=== PATIENT | female | born 1975 | race Hispanic/Latino ===

== ENCOUNTER 2022-12-30 15:11 | Emergency (ER) | payer OTHER ==
--- OUTSIDE RECORDS SUMMARY | 2022-12-30 15:17 | XMS REPORT | Continuity of Care Document ---
:1975 Author Organization [facility] t Address [address] [place] [address] Care Team Providers Name Role Phone NO, PCP Primary Care Physician Unavailable NOMI CARMONA Attending Clinician Unavailable DUONG HERMAN Attending Clinician Unavailable NICOLLE BAILON Attending Clinician Unavailable JUSTIN MENA Attending Clinician Unavailable IZABELLA BOYLE Attending Clinician Unavailable SRIDEVI SAHNI Attending Clinician Unavailable ANTHONY ASHTON Attending Clinician Unavailable GINI GOMES Attending Clinician Unavailable ERNIE ANDRADE Attending Clinician Unavailable ANNABELLA DUBOSE Attending Clinician Unavailable JUAN RASCON Attending Clinician Unavailable SUSAN BRYANT Attending Clinician Unavailable CAMILA FERRO Attending Clinician Unavailable FEDE MARK I Attending Clinician Unavailable NANCY VILLAFUERTE Attending Clinician Unavailable LUPE CHAVARRIA Attending Clinician Unavailable Aggie Muniz Attending Clinician Unavailable INGRID HOLGUIN Attending Clinician Unavailable SABRINA CARD Admitting Clinician Unavailable Physician, No Primary or Family Admitting Clinician UnavailINGRID Torrez Admitting Clinician Unavailable Payers Payer Name Policy Type Policy Number Effective Date Expiration Date S ource Problems Condition Condition Condition Status Onset Resolution Last Treating Co mments Source Name Details Category Date Date Treatment Clinician Date Severe Problem Active [facility] Vaginal Problem Active [facility] Allergies, Adverse Reactions, Alerts Allergy Allergy Status Severity Reaction(s) Onset Inactive Treating Comm ents Source Name Type Date Date Clinician No Known DA Active U 2020-11 TARUN Allergnoble 12-05 [facility] e [facility] No Known DA Active [facility]y s Patient [facility] Social History Social Habit Start Date Stop Date Quantity Comments Source History of tobacco [facility] Sex Assigned At [birth year] Female [facility] St Yamini whitt 00:00:00 00:00:00 Patient [facility] Medications This patient has no known medications. Vital Signs Vital Name Observation Time Observation Value Comments Source BP Diastolic 2021-09-02 11:31:00 48 mm[Hg] [facility] BP Systolic 2021-09-02 11:31:00 104 mm[Hg] [facility] Oxygen saturation by 2021-09-02 11:31:00 100 /min [facility] Pulse oximetry Patient [facility] Heart Rate 2021-09-02 11:31:00 68 /min [facility] Respiratory rate 2021-09-02 11:31:00 18 /min [facility] Body Temperature 2021-09-02 11:31:00 97.1 [degF] [facility] BP Diastolic 2021-09-02 09:02:00 56 mm[Hg] [facility] BP Systolic 2021-09-02 09:02:00 101 mm[Hg] [facility] Oxygen saturation by 2021-09-02 09:02:00 100 /min [facility] Pulse oximetry Patient [facility] Heart Rate 2021-09-02 09:02:00 63 /min [facility] Respiratory rate 2021-09-02 09:02:00 18 /min [facility] Body Temperature 2021-09-02 09:02:00 98.3 [degF] [facility] Respiratory rate 2021-09-02 08:11:00 18 /min [facility] Body Temperature 2021-09-02 08:11:00 98.3 [degF] [facility] BP Diastolic 2021-09-02 08:11:00 56 mm[Hg] [facility] BP Systolic 2021-09-02 08:11:00 101 mm[Hg] [facility] Oxygen saturation by 2021-09-02 08:11:00 100 /min [facility] P[facility] Heart Rate 2021-09-02 08:11:00 63 /min [facility] BP Diastolic 2021-09-02 04:00:00 57 mm[Hg] [facility] BP Systolic 2021-09-02 04:00:00 110 mm[Hg] [facility] Oxygen saturation by 2021-09-02 04:00:00 100 /min [facility] P[facility] Heart Rate 2021-09-02 04:00:00 65 /min [facility] Respiratory rate 2021-09-02 04:00:00 20 /min [facility] Body Temperature 2021-09-02 04:00:00 97.9 [degF] [facility] BP Diastolic 2021-09-02 00:00:00 58 mm[Hg] [facility] BP Systolic 2021-09-02 00:00:00 114 mm[Hg] [facility] Oxygen saturation by 2021-09-02 00:00:00 100 /min [facility] Pulse [facility] Heart Rate 2021-09-02 00:00:00 59 /min [facility] Respiratory rate 2021-09-02 00:00:00 18 /min [facility] Body Temperature 2021-09-02 00:00:00 98.3 [degF] [facility] BP Diastolic 2021-09-01 21:00:00 56 mm[Hg] [facility] BP Systolic 2021-09-01 21:00:00 106 mm[Hg] [facility] Oxygen saturation by 2021-09-01 21:00:00 100 /min [facility] Heart Rate 2021-09-01 21:00:00 67 /min [facility] Patient [facility] Respiratory rate 2021-09-01 21:00:00 20 /min [facility] St [facility] Body Temperature 2021-09-01 21:00:00 98.3 [degF] [facility] BP Diastolic 2021-09-01 20:00:00 56 mm[Hg] [facility] BP Systolic 2021-09-01 20:00:00 106 mm[Hg] [facility] Patient [facility] Oxygen saturation by 2021-09-01 20:00:00 100 /min [facility] Pulse oximetry Patient [facility] Heart Rate 2021-09-01 20:00:00 67 /min [facility] Patient [facility] Respiratory rate 2021-09-01 20:00:00 20 /min [facility] Body Temperature 2021-09-01 20:00:00 98.3 [degF] [facility] BP Diastolic 2021-09-01 16:00:00 55 mm[Hg] [facility] BP Systolic 2021-09-01 16:00:00 99 mm[Hg] [facility] Oxygen saturation by 2021-09-01 16:00:00 98 /min [facility] Pulse oximetry Patient [facility] Heart Rate 2021-09-01 16:00:00 63 /min [facility] Respiratory rate 2021-09-01 16:00:00 18 /min [facility] Body Temperature 2021-09-01 16:00:00 97.6 [degF] [facility] BP Diastolic 2021-09-01 12:08:00 46 mm[Hg] [facility] BP Systolic 2021-09-01 12:08:00 111 mm[Hg] [facility] Patient [facility] Oxygen saturation by 2021-09-01 12:08:00 100 /min [facility] Pulse oxim[facility] Patient [facility] Heart Rate 2021-09-01 12:08:00 85 /min [facility] Respiratory rate 2021-09-01 12:08:00 16 /min [facility] Body Temperature 2021-09-01 12:08:00 97.9 [degF] [facility] St [facility] BP Diastolic 2021-09-01 09:15:00 55 mm[Hg] [facility] BP Systolic 2021-09-01 09:15:00 105 mm[Hg] [facility] Oxygen saturation by 2021-09-01 09:15:00 100 /min [facility] Pulse [facility]xim[facility] Heart Rate 2021-09-01 09:15:00 63 /min [facility] Respiratory rate 2021-09-01 09:15:00 18 /min [facility] Body Temperature 2021-09-01 09:15:00 97.5 [degF] [facility] BP Diastolic 2021-09-01 09:14:00 55 mm[Hg] [facility] BP Systolic 2021-09-01 09:14:00 105 mm[Hg] [facility] Oxygen saturation by 2021-09-01 09:14:00 100 /min [facility] Pulse [facility]ximetry Patient [facility] Heart Rate 2021-09-01 09:14:00 63 /min [facility] Respiratory rate 2021-09-01 09:14:00 18 /min [facility] Body Temperature 2021-09-01 09:14:00 97.5 [degF] [facility] Oxygen saturation by 2021-09-01 07:25:00 99 /min [facility] Pulse [facility]ximetry Patient [facility] Oxygen saturation by 2021-09-01 04:45:00 100 /min [facility] Pulse [facility]ximetry Patient [facility] Oxygen saturation by 2021-09-01 03:45:00 100 /min [facility] Pulse [facility]ximetry Patient [facility] Oxygen saturation by 2021-09-01 03:20:00 100 /min [facility] Pulse [facility]ximetry Patient [facility] Heart Rate 2021-09-01 03:20:00 72 /min [facility] Center Respiratory rate 2021-09-01 03:20:00 18 /min [facility] Oxygen saturation by 2021-09-01 02:45:00 100 /min [facility] Pulse [facility]ximetry Patient [facility] Oxygen saturation by 2021-09-01 01:45:00 100 /min [facility] Pulse [facility]ximetry Patient [facility] Heart Rate 2021-09-01 01:45:00 68 /min [facility] Patient [facility] Respiratory rate 2021-09-01 01:45:00 20 /min [facility] Patient [facility] Oxygen saturation by 2021-09-01 00:45:00 100 /min [facility] Pulse oximetry Patient [facility] Oxygen saturation by 2021-08-31 23:45:00 100 /min [facility] Pulse oximetry Patient [facility] Heart Rate 2021-08-31 23:45:00 76 /min [facility] Respiratory rate 2021-08-31 23:45:00 20 /min [facility] Patient [facility] Oxygen saturation by 2021-08-31 22:45:00 100 /min [facility] Pulse oximetry Patient [facility] Oxygen saturation by 2021-08-31 21:45:00 100 /min [facility] Pulse oximetry Patient [facility] Oxygen saturation by 2021-08-31 20:45:00 100 /min [facility] Pulse oximetry Patient [facility] Oxygen saturation by 2021-08-31 19:45:00 100 /min [facility] Pulse oximetry Patient [facility] Oxygen saturation by 2021-08-31 17:17:00 100 /min [facility] Pulse oximetry Patient [facility] Oxygen saturation by 2021-08-31 15:54:00 100 /min [facility] Pulse oximetry Patient [facility] Oxygen saturation by 2021-08-31 15:01:00 100 /min [facility] Pulse [facility]ximetry Patient [facility] Procedures Procedure Date / Time Performed Performing Clinician Sour e Complete non-obstetrical 2021-08-31 00:00:[address] [facility] ultrasound [facility] Patient [facility] US transvaginal 2021-08-31 00:00:[address] [facility] Plan of Care Planned Activity Planned Date Details Comments Source Instructions Uterine Fibroids, [facility] Instructions Abnormal Uterine [facility] Encounters Start End Encounter Admission Attending Care Care Encounter Source Date/Time Date/Time Type Type Clinicians Facility Department ID 2022-04-28 Inpatient KRISTINE, [facility] [id number] H arris 00:00:00 [facility] 2022-04-28 Inpatient KRISTINE, [facility] [id number] H arris 00:00:00 [facility] 2021-08-31 Inpatient [facility] [id number] [facility] 14:51:00 -[id number] [facility] 2022-06-18 2022-06-18 Outpatient [facility] [id number] [place] 00:00:00 00:00:00 [facility] 2022-06-11 2022-06-11 Outpatient CHIDI [facility] [id number] [place] 00:00:00 00:00:00 DUONG MARISCAL [facility] 2022-05-12 2022-05-12 Outpatient NICOLLE BAILON [facility] [id number] [place] 08:45:12 09:08:55 [facility] 2022 2022 Outpatient [facility] [id number] [place] 00:00:00 00:00:00 [facility] 2022-04-27 2022-04-29 [facility]patient [facility] [id number] [place] 21:59:00 14:24:00 [facility] 2022-04-27 2022-04-27 Outpatient 1 TAMAR [facility] [id number] [place] 21:59:00 21:59:00 [facility] 2022-04-22 2022-04-22 Outpatient [facility] [id number] [place] 00:00:00 00:00:00 [facility] 2022-04-02 2022-04-02 Outpatient INDY [facility] [id number] [place] 06:12:26 06:12:26 SRIDEVI Kinsey 2022-03-27 2022-03-27 Outpatient DIASHA [facility] [id number] [place] 00:00:00 00:00:00 [facility] 2022-03-24 2022-03-25 Emergency ELISEO [facility] MED [id number] [place] 17:07:00 05:08:00 GINI Huertas 2022-03-24 2022-03-24 [facility] [id number] [place] 18:16:25 19:48:37 ERNIE [facility] 2022-03-24 2022-03-24 Emergency 1 [facility] [id number] [place] 17:07:00 17:07:00 [facility] 2022-03-24 2022-03-24 Outpatient SEDRICK, [facility] [id number] [place] 00:00:00 17:06:00 [facility] 2022-03-19 2022-03-19 Emergency TARAH, [facility] MED [id number] [place] 14:19:00 21:20:00 JUAN [facility] 2022-03-19 2022-03-19 [facility] [id number] [place] 09:21:26 11:24:02 [facility] 2022-03-19 2022-03-19 Outpatient [facility] [id number] [place] 10:24:57 10:36:28 [facility] 2022-03-19 2022-03-19 [facility] [id number] [place] 00:00:00 00:00:00 [facility] 2022-03-19 2022-03-19 Outpatient SUSAN BRYANT [facility] [id number] [place] 00:00:00 00:00:00 [facility] 2022-02-13 2022-02-13 [facility] [id number] [place] 14:35:45 14:41:39 [facility] 2022-02-13 2022-02-13 [facility] [id number] [place] 13:13:25 14:28:59 [facility] 2022-02-13 2022-02-13 [facility] [id number] [place] 00:00:00 00:00:00 [facility] 2022-02-13 2022-02-13 [facility] [id number] [place] 00:00:00 00:00:00 [facility] 2022-01-10 2022-01-11 Emergency PILLO [facility] MED [id number] [place] 20:58:00 05:10:[facility] 2022-01-11 Emergency FEDE MARK [facility] [id number] [place] 02:32:08 03:12:48 Health 2022-01-11 2022-01-11 Emergency FEDE MARK [facility] [id number] [place] 00:06:02 00:07:52 [facility] 2022-01-10 2022-01-10 Emergency 1 CHRISTO [facility] [id number] [place] 20:58:00 20:58:00 NANCY [facility] 2022-01-07 2022-01-08 [facility] [id number] [place] 16:52:00 01:52:00 LUPE [facility] 2022-01-07 2022-01-07 Emergency [facility] [id number] [place] 17:26:14 18:12:21 [facility] 2021-10-05 2021-10-06 Emergency EHSAN Muniz [facility] [id number] [facility] 19:27:00 00:26:[address] 2021-08-31 2021-09-02 Discharged 1 INGRID HOLGUIN [facility] [id number] [facility] 17:27:00 12:55:00 Inpatient Patients [address] [place] [address] Results Test Description Test Time Test Comments Results Result Comments Source SARS-CoV-2 RNA Resp Ql MONIQUE+probe 2022-04-28 03:49:02 Test Item Value Reference Range Interpretation Comme nts Hospitalized? (test code = Yes 70399-3) ICU? (test code = 80747-5) No Symptomatic as defined by CDC? No (test code = 76851-8) Employed in Healthcare? (test No code = 39549-2) Resident in a congregate care No setting (including nursing homes, residential care for people with intellectual and developmental disabilities, psychiatric treatment facilities, group homes, board and care homes, homeless senior living, foster care or other): (test code = 96026-6) ? (test code = No 72276-0) SARS-CoV-2 RNA Resp Ql NOT DETECTED Not Detected The 2 019 novel coronavirus MONIQUE+probe (test code = (SARS -CoV-2) target nucleic 09159-3) acids are not d etected. The KIKI Kandis SARS-CoV-2/Influenza is a real-time RT-PCR based diagnostic test intended for the qualitative detection of SARS-CoV-2 viral RNA in a nasopharyngeal swab during acute phase of infection. This test was developed and its performance characteristics have been determined by the [facility]. This test has not been cleared or approved by the FDA. This test system has been authorized by the FDA under an Emergency Use Authorization (EUA). This test has been validated in accordance with the FDA's Guidance document "Policy for Coronavirus Disease-2019 Tests During the Public Health Emergency" (Revised March 2020) and is used for clinical purposes. It should not be regarded as investigational or for researchPositive results are indicative of the presence of the identified virus, but do not rule out bacterial infection or co-infection with other pathogens not detected by the test. Clinical correlation with patient history and other diagnostic information is necessary to determine patient infection status. Negative results do not preclude SARS-CoV-2 or Influenza A and B and should not be used as the sole basis for treatment or other patient management decisions. Negative results must be combined with clinical observations, patient history, and/or epidemiological information. If co-infection with influenza A or influenza B virus is suspected in samples with a positive SARS-CoV-2 result, please contact the laboratory so that the sample can be re-tested with a different instrument, if influenza virus detection would change clinical management.This laboratory is certified under the Clinical Laboratory Improvement Amendments (CLIA) as qualified to perform high complexity clinical laboratory testing.HHSHIV 1+2 Ab+HIV1 p24 Ag SerPl Ql [id number] 17:21:50 Test Item Value Reference Range Interpretation Comments HIV 1+2 Ab+HIV1 p24 Ag SerPl Ql IA NEGATIVE Negative (test code = 91562-7) HHSHIV 1+2 Ab+HIV1 p24 Ag SerPl Ql [id number] 21:05:20 Test Item Value Reference Range Interpretation Comments HIV 1+2 Ab+HIV1 p24 Ag SerPl Ql IA NEGATIVE Negative (test code = 38949-7) HHSHCG SERUM [id number] 22:03:00 Test Item Value Reference Range Interpretation Comments HCG SERUM QUAL (test NEGATIVE NEGATIVE This HC GQL test is NOT code = HCGQL) applicable for MALE patients.Check with nurse about probable order error.If Tumor Marker Test needed, nu rse should order test "HCG TU"(Test #550.81557)---- - BASIC METABOLIC [id number] 22:03:00 Test Item Value Reference Range Interpretation Comments SODIUM (test code = 138 mmol/L 136-145 N NA) POTASSIUM (test code 3.7 mmol/L 3.5-5.1 N = K) CHLORIDE (test code 108.0 mmol/L 98-107 H = CL) CARBON DIOXIDE (test 20.0 mmol/L 21-32 L code = CO2) ANION GAP (test code 13.7 10-20 N = GAP) GLUCOSE (test code = 170 mg/dL 74-106 H GLU) BLOOD UREA NITROGEN 11 mg/dL 7-18 N (test code = BUN) GLOMERULAR > 60 mL/min See_Comment Estimated GFR b y FILTRATION RATE using Modifi ed MDRD (test code = GFR) formula.[facility] kidney disease is defined as eith er kidney damageor GFR <60 mL/min/1.73 m2 for >3 months. [Automated mess age] The system BMEYE generated this result transmitted ref erence range: >=60. Th e reference range was not used to int erpret this result as normal/abnormal . CREATININE (test 0.70 mg/dL 0.55-1.02 N Note garvey ge in code = CREAT) reference rang e due to change in reagent. BUN/CREATININE RATIO 15.1 10-20 N (test code = BUN/CREA) CALCIUM (test code = 8.9 mg/dL 8.5-10.1 N CA) CBC W/O [id number] 21:48:00 Test Item Value Reference Range Interpretation Comments WHITE BLOOD CELL (test code = 7.5 K/mm3 4.5-12.5 N WBC) RED BLOOD CELL (test code = 3.73 mill/mm3 3.7-5.2 N RBC) HEMOGLOBIN (test code = HGB) 7.4 gram/dL 11.5-15.5 L HEMATOCRIT (test code = HCT) 27.7 % 36.0-46.0 L MEAN CELL VOLUME (test code = 74.3 fL 80-98 L MCV) MEAN CELL HGB (test code = MCH) 19.8 picogram 27.0-33.0 L MEAN CELL HGB CONCETRATION 26.7 gram/dL 33.0-36.0 L (test code = MCHC) RED CELL DISTRIBUTION WIDTH 19.0 % 11.6-16.2 H (test code = RDW) PLATELET COUNT (test code = 328 K/mm3 150-450 N PLT) MEAN PLATELET VOLUME (test code 9.4 fL 6.7-11.0 N = MPV) - DUP AB/PEL/SC [id number] 21:05:00 [facility] : 1975 Sex: F [facility]: [facility] 1975 Age/S: 46 / F [address] Replaced By [facility] Unit #: [id number] Loc: E[place] [address] Phys: Shimon Qureshi Acct: [id number] Dis Date: Status: REG ER PHONE #: [phone] Exam Date: 10/05/20212101 FAX #: [phone] Reason: PELVIC PAIN EXAMS: CPT CODE: [id number] DUP AB/PEL/SC COMP 45516 HISTORY: VAGINAL BLEEDING/PELVIC PAIN TECHNIQUE: Static grayscale and color Doppler images from real-time transabdominal sonographic evaluation of the pelvis. Images from endovaginal probe were also acquired for better visualization of endometrial canal and adnexal structures. COMPARISON: None FINDINGS: Uterus measures 11.9 x 6.1 x 5.9 cm (length x AP x transverse dimensions). Hypoechoic 6.3 x 4.3 x 6.5 cm anterior lower uterine segment submucosal/intramural fibroid. Endometrial stripe is normal thickness at 8 mm. Right ovary measures 4.5 x 1.5 x 4.0 cm. No mass or dominant cyst. Satisfactory color Doppler flow and spectral waveform is detected. Left ovary measures 3.3 x 2.6 x 2.6 cm. No mass or dominant cyst. Satisfactory color Doppler flow and spectral waveform is detected. No adnexal mass. No pelvic free fluid. IMPRESSION: 6.5 cm anterior lower uterine segment submucosal/intramural fibroid. Normal thickness endometrial stripe. LOCATION: LP at 2104 Reported and signed by: Nancy Wright D.O. PAGE 1 Signed Report (CONTINUED) Name: SINGHLORENA HIDALGOALFONSO JUAN [facility] : 1975 Age/S: 46 / F [address] [facility] Unit #: [id number] Loc: [place] [address] Phys: Shimon Qureshi Acct: [id number] Dis Date: Status: REG ER PHONE #: [phone] Exam Date: 10/05/20212101 FAX #: [phone] Reason: PELVIC PAIN EXAMS: CPT CODE: [id number] DUP AB/PEL/SC COMP 12578 (Continued) CC: Shimon Qureshi Technologist: RAMY DOYLE Trnscb Date/Time: 10/05/2021 (2104) [email or web address] Orig Print D/T: S: 10/05/2021 (2107) Probe: PAGE 2 Signed Report- US TRANSVAGINAL NON [id number] 21:05:00 [facility])Name: FRANCISCO PALOMOALFONSO Boss : 1975 Sex: F Name: ALFONSO TORRES [facility] : 1975 Age/S: 46/ F [address] Unit #: [id number] Loc: [place] [address] Phys: Shimon Qureshi APRIESHA Acct: [id number] Dis Date: Status: REG ER PHONE #: [phone] Exam Date: 10/05/20212101 FAX #: [phone] Reason: VAGINAL BLEEDING/PELVIC PAIN EXAMS: CPT CODE: [id number] [place] [address] HISTORY: VAGINAL BLEEDING/PELVIC PAIN TECHNIQUE: Static grayscale and color Doppler images from real-time transabdominal sonographic evaluation of the pelvis. Images from endovaginal probe were also acquired for better visualization of endometrial canal and adnexal structures. COMPARISON: None FINDINGS:Uterus measures 11.9 x 6.1 x 5.9 cm (length x AP x transverse dimensions). Hypoechoic 6.3 x 4.3 x 6.5 cm anterior lower uterine segment submucosal/intramural fibroid. Endometrial stripe is normal thickness at 8 mm. Right ovary measures 4.5 x 1.5 x 4.0 cm. No mass or dominant cyst. Satisfactory color Doppler flow and spectral waveform is detected. Left ovary measures 3.3 x 2.6 x 2.6 cm. No mass or dominant cyst. Satisfactory color Doppler flow and spectral waveform is detected. No adnexal mass. No pelvic free fluid. IMPRESSION: 6.5 cm anterior lower uterine segment submucosal/intramural fibroid. Normal thickness endometrial stripe. LOCATION: LP at 2105 Reported and signed by: Nancy Wright D.O. PAGE 1 Signed Report (CONTINUED) Name: [facility]SO [facility] : 1975 Age/S: 46 / F [address] Unit #: [id number] Loc: [place] [address] Phys: Shimon Qureshi Acct: [id number] Dis Date: Status: REG ER PHONE #: [phone] Exam Date: 10/05/20212101 FAX #: [phone] Reason: VAGINAL BLEEDING/PELVIC PAIN EXAMS: CPT CODE: [id number] [place] [address] (Continued) CC: Shimon Qureshi Technologist: RAMY DOYLE US Trnscb Date/Time: 10/05/2021 (2104) [email or web address] Orig Print D/T: S: 10/05/2021 (2107) Probe: [id number] PAGE 2 Signed Report- US PELVIS [id number] 21:05:00 [facility] TORRES YESSICA : 1975 Sex: F Name: PALOMA TORRESSilvano JUAN [facility] : 1975 Age/S: 46 / F [address] [facility] Unit #: [id number] Loc: [place] [address] Phys: Shimon Qureshi Acct: [id number] Dis Date: Status: REG ER PHONE #: [phone] Exam Date: 10/05/20212101 FAX #: [phone] Reason: VAGINAL BLEEDING/PELVIC PAIN EXAMS: CPT CODE: [id number] US PELVIS COMPLETE 52584 HISTORY:VAGINAL BLEEDING/PELVIC PAIN TECHNIQUE: Static grayscale and color Doppler images from real-time transabdominal sonographic evaluation of the pelvis. Images from endovaginal probe were also acquired for better visualization of endometrial canal and adnexal structures. COMPARISON: None FINDINGS: Uterusmeasures 11.9 x 6.1 x 5.9 cm (length x AP x transverse dimensions). Hypoechoic 6.3 x 4.3 x 6.5 cm anterior lower uterine segment submucosal/intramural fibroid. Endometrial stripe is normal thickness at8 mm. Right ovary measures 4.5 x 1.5 x 4.0 cm. No mass or dominant cyst. Satisfactory color Doppler flow and spectral waveform is detected. Left ovary measures 3.3 x 2.6 x 2.6 cm. No mass or dominant cyst. Satisfactory color Doppler flow and spectral waveform is detected. No adnexal mass. No pelvic free fluid. IMPRESSION: 6.5 cm anterior lower uterine segment submucosal/intramural fibroid. Normal thickness endometrial stripe. LOCATION: LP dr9056 Reported and signed by: Nancy Wright D.O. PAGE 1 Signed Report (CONTINUED) Name: ALFONSO TORRES [facility] : 1975 Age/S: 46 / F [address] [facility] Unit #: [id number] Loc: [place] [address] Phys: Shimon Qureshi Acct: [id number] Dis Date: Status: REG ER PHONE #: [phone] Exam Date: 10/05/20212101 FAX #: [phone] Reason: VAGINAL BLEEDING/PELVIC PAIN EXAMS: CPT CODE: [id number] US PELVIS COMPLETE 68545 (Continued) CC: Shimon Qureshi Technologist: RAMY DOYLE Trnscb Date/Time: 10/05/2021 (2104) [email or web address] Orig Print D/T: S: 10/05/2021 (2107) Probe: PAGE 2 Signed Report URINALYSIS [id number] 20:36:00 Test Item Value Reference Range Interpretation Comments UA COLOR (test code = ORANGE YELLOW A COLU) UA APPEARANCE (test TURBID CLEAR A IS THE S AMPLE code = APPU) FROM ER OR L&D? Y IF THE ANSWER I S NO,PLEASE DOCUMENT TWO RN SIGNATURES HERE - by [id number] 10/05/212035 UA GLUCOSE DIPSTICK 70 (1+) mg/dL NEGATIVE A (test code = DGLUU) UA BILIRUBIN DIPSTICK NEGATIVE mg/dL NEGATIVE (test code = BILU) UA KETONE DIPSTICK NEGATIVE mg/dL NEGATIVE (test code = KETU) UA SPECIFIC GRAVITY 1.042 1.001-1.035 (test code = SGU) UA BLOOD DIPSTICK >1.0 (3+) mg/dL NEGATIVE A (test code = EILEEN) UA PH DIPSTICK (test 5.5 5.0-8.0 code = SUBHASH) UA PROTEIN DIPSTICK 70 (1+) mg/dL NEGATIVE A (test code = PROU) UA UROBILINIOGEN Normal mg/dL NEGATIVE DIPSTICK (test code = URO) UA NITRITE DIPSTICK NEGATIVE NEGATIVE (test code = SALVADOR) UA LEUKOCYTE ESTERASE 25 Lacey/uL NEGATIVE A W REFLEX (test code = (Trace) Lacey/uL LEUUR) UA WBC (test code = NONE SEEN per 0-5 WBCU) HPF UA RBC (test code = >200 #/HPF 0-5 RBCU) UA EPITHELIAL CELLS None seen per FEW (test code = EPIU) HPF UA BACTERIA (test NONE SEEN #/HPF NONE code = BACU) UA MUCUS (test code = FEW #/LPF FEW MUCU) Urine Source? Clean CatchCapillary blood glucose measurement by glucometer (mass/volume)2021-09-02 10:28:00 Test Item Value Reference Range Interpretation Comments Bedside Glucose (test code = 81471-4) 217 70-120 [facility] CenterBlood leukocytes automated count (number/volume)2021-09-02 04:28:00 Test Item Value Reference Range Interpretation Comments White Blood Count (test code = 6690-2) 5.91 4.8-10.8 [facility] CenterBlood erythrocytes automated count (number/volume)2021-09-02 04:28:00 Test Item Value Reference Range Interpretation Comments Red Blood Count (test code = 789-8) 3.04 3.6-5.1 [facility] CenterBlood hemoglobin measurement (moles/volume) 2021-09-02 04:28:00 Test Item Value Reference Range Interpretation Comments Hemoglobin (test code = 70394-7) 7.1 12.0-16.0 [facility] CenterAutomated blood hematocrit (volume fraction) 2021-09-02 04:28:00 Test Item Value Reference Range Interpretation Comments Hematocrit (test code = 4544-3) 23.1 34.2-44.1 [facility] CenterAutomated erythrocyte mean corpuscular volume 2021-09-02 04:28:00 Test Item Value Reference Range Interpretation Comments Mean Corpuscular Volume (test code = 76.0 81-99 787-2) [facility] CenterAutomated erythrocyte mean corpuscular hemoglobin (mass per erythrocyte)2021-09-02 04:28:00 Test Item Value Reference Range Interpretation Comments Mean Corpuscular Hemoglobin (test code 23.4 28-32 = 785-6) [facility] CenterAutomated erythrocyte mean corpuscular hemoglobin concentration measurement (mass/volume)2021-09-02 04:28:00 Test Item Value Reference Range Interpretation Comments Mean Corpuscular Hemoglobin Concent 30.7 31-35 (test code = 786-4) [facility] CenterRDW VzqOg-Mde2755-87-26 04:28:00 Test Item Value Reference Range Interpretation Comments Red Cell Distribution Width (test code 24.6 11.7-14.4 = 34739-2) [facility] CenterAutomated blood platelet count (count/volume) 2021-09-02 04:28:00 Test Item Value Reference Range Interpretation Comments Platelet Count (test code = 777-3) 247 140-360 [facility] CenterAutomated blood segmented neutrophil count as percentage of total itvlvlkkjl1974-55-22 04:28:00 Test Item Value Reference Range Interpretation Comments Neutrophils (%) (Auto) (test code = 64.0 38.7-80.0 42520-0) [facility] CenterAutomated blood lymphocyte count as percentage ot total uecicprlid1214-99-08 04:28:00 Test Item Value Reference Range Interpretation Comments Lymphocytes (%) (Auto) (test code = 26.6 18.0-39.1 736-9) [facility] CenterAutomated blood monocyte count as percentage of total mlgmrrxdmn3472-71-88 04:28:00 Test Item Value Reference Range Interpretation Comments Monocytes (%) (Auto) (test code = 5.2 4.4-11.3 5905-5) [facility] CenterAutomated blood eosinophil count as percentage of total figvpgzcog0259-02-28 04:28:00 Test Item Value Reference Range Interpretation Comments Eosinophils (%) (Auto) (test code = 2.4 0.0-6.0 713-8) [facility] CenterAutomated blood basophil count as percentage of total fdmksdzrmk4851-81-19 04:28:00 Test Item Value Reference Range Interpretation Comments Basophils (%) (Auto) (test code = 0.8 0.0-1.0 706-2) [facility] CenterFluoroscopic procedure less than one hour bzshglyf3372-75-89 04:28:00 Test Item Value Reference Range Interpretation Comments IM GRANULOCYTES % (test code = IM 1.0 0.0-1.0 GRANULOCYTES %) [facility] CenterAutomated blood neutrophil tiejc6650-93-60 04:28:00 Test Item Value Reference Range Interpretation Comments Neutrophils # (Auto) (test code = 3.8 2.1-6.9 751-8) [facility] CenterBlood lymphocytes count (number/volume) 2021-09-02 04:28:00 Test Item Value Reference Range Interpretation Comments Lymphocytes # (Auto) (test code = 1.6 1.0-3.2 47728-7) [facility] CenterBlood monocytes automated count (number/volume)2021-09-02 04:28:00 Test Item Value Reference Range Interpretation Comments Monocytes # (Auto) (test code = 742-7) 0.3 0.2-0.8 [facility] CenterAutomated blood eosinophil nkkqm4494-59-04 04:28:00 Test Item Value Reference Range Interpretation Comments Eosinophils # (Auto) (test code = 0.1 0.0-0.4 711-2) [facility] CenterAutomated blood basophil count (count/volume) 2021-09-02 04:28:00 Test Item Value Reference Range Interpretation Comments Basophils # (Auto) (test code = 704-7) 0.1 0.0-0.1 [facility] CenterFluoroscopic procedure less than one hour utqhtsee9261-99-06 04:28:00 Test Item Value Reference Range Interpretation Comments Absolute Immature Granulocyte (auto 0.06 0-0.1 (test code = Absolute Immature Granulocyte (auto) [facility] CenterFluoroscopic procedure less than one hour ifegngey3637-42-79 04:28:00 Test Item Value Reference Range Interpretation Comments Hemoglobin A1c Percent (test code = 5.9 4.0-7.0 Hemoglobin A1c Percent) [facility] Rockerum or plasma sodium measurement (moles/volume)2021-09-02 04:25:00 Test Item Value Reference Range Interpretation Comments Sodium Level (test code = 2951-2) 141 136-145 [facility] Rockerum or plasma potassium measurement (moles/volume)2021-09-02 04:25:00 Test Item Value Reference Range Interpretation Comments Potassium Level (test code = 2823-3) 3.5 3.5-5.1 [facility] Rockerum or plasma chloride measurement (moles/volume)2021-09-02 04:25:00 Test Item Value Reference Range Interpretation Comments Chloride Level (test code = 2075-0) 114 98-107 [facility] Rockerum or plasma carbon dioxide, total measurement (moles/volume)2021-09-02 04:25:00 Test Item Value Reference Range Interpretation Comments Carbon Dioxide Level (test code = 2028-07) [facility] Rockerum or plasma anion bdz5955-33-04 04:25:00 Test Item Value Reference Range Interpretation Comments Anion Gap (test code = 24759-1) 11.5 8-16 [facility] Rockerum or plasma urea nitrogen measurement (mass/volume)2021-09-02 04:25:00 Test Item Value Reference Range Interpretation Comments Blood Urea Nitrogen (test code = 06-02 3094-0) [facility] Rockerum or plasma creatinine measurement (mass/volume)2021-09-02 04:25:00 Test Item Value Reference Range Interpretation Comments Creatinine (test code = 2160-0) 0.67 0.57-1.11 [facility] Rockerum or plasma urea nitrogen/creatinine mass utijw2618-04-57 04:25:00 Test Item Value Reference Range Interpretation Comments BUN/Creatinine Ratio (test code = 12 05-02 3097-3) [facility] CenterEstimated glomerular filtration rate (GFR) yiayllijbrcxl8882-47-04 04:25:00 Test Item Value Reference Range Interpretation Comments Estimat Glomerular 96 See_Comment [Automat ed message] The Filtration Rate (test system which generated code = 111952321) this resul t transmitted reference range : 60-. The reference r haris was not used to int erpret this result as normal/abnormal . [facility] CenterGlucose zomilhlhple7686-20-79 04:25:00 Test Item Value Reference Range Interpretation Comments Glucose Level (test code = BZN9501) 123 74-118 [facility] Rockerum or plasma calcium measurement (mass/volume)2021-09-02 04:25:00 Test Item Value Reference Range Interpretation Comments Calcium Level (test code = 57449-6) 7.6 8.4-10.2 [facility] CenterBlood cobalamin (vitamin B12) measurement (mass/volume)2021-09-02 04:25:00 Test Item Value Reference Range Interpretation Comments Vitamin B12 Level (test code = 13560-7) 431 213816 [facility] Rockerum or plasma folate measurement (mass/volume)2021-09-02 04:25:00 Test Item Value Reference Range Interpretation Comments Folate (test code = 2284-8) 10.0 7.0-15.4 [facility] Rockerum or plasma thyrotropin measurement by detection limit <= 0.005 miu/l (units/volume)2021-09-02 04:25:00 Test Item Value Reference Range Interpretation Comments Thyroid Stimulating Hormone (TSH) (test 1.536 0.350-4.940 code = 36342-1) [facility] Rockerum or plasma total bilirubin measurement (mass/volume)2021-09-01 05:15:00 Test Item Value Reference Range Interpretation Comments Total Bilirubin (test code = 1975-2) 1.0 0.2-1.2 [facility] CenterFluoroscopic procedure less than one hour whrhoxpe1702 05:15:00 Test Item Value Reference Range Interpretation Comments Aspartate Amino Transf (AST/SGOT) (test 61 5-34 code = Aspartate Amino Transf (AST/SGOT)) [facility] Rockerum or plasma alanine aminotransferase measurement (enzymatic activity/volume)2021-09-01 05:15:00 Test Item Value Reference Range Interpretation Comments Alanine Aminotransferase (ALT/SGPT) 29 0-55 (test code = 1742-6) [facility] Rockerum or plasma protein measurement (mass/volume)2021-09-01 05:15:00 Test Item Value Reference Range Interpretation Comments Total Protein (test code = 2885-2) 5.7 6.5-8.1 [facility] Rockerum or plasma albumin measurement (mass/volume)2021-09-01 05:15:00 Test Item Value Reference Range Interpretation Comments Albumin (test code = 1751-7) 3.1 3.5-5.0 [facility] CenterPlasma globulin measurement (mass/volume) 2021-09-01 05:15:00 Test Item Value Reference Range Interpretation Comments Globulin (test code = 92536-4) 2.6 2.3-3.5 [facility] Rockerum or plasma albumin/globulin mass ratio 2021-09-01 05:15:00 Test Item Value Reference Range Interpretation Comments Albumin/Globulin Ratio (test code = 1.2 0.8-2.0 1759-0) [facility] Rockerum or plasma alkaline phosphatase measurement (enzymatic activity/volume)2021-09-01 05:15:00 Test Item Value Reference Range Interpretation Comments Alkaline Phosphatase (test code = 50 40-150 6768-6) [facility] CenterUS PELVIS COMPLETE NON [id number] 21:54:00 [facility] 1975 Sex: F [facility] [address] [address] Patient Name: ALFONSO SINGH MR #: [id number] : 1975 Age/Sex: 46/F Req #: [id number] [facility] Physician: INGRID HOLGUIN MD Ordered by: SUSIE VARGAS MD Report #: [id number] Location: [facility] Room/Bed: [place] [address] Procedure: [id number] US/US PELVIS COMPLETE NON OB Exam Date: 08/31/21 Exam Time: 1838 REPORT STATUS: Signed TECHNIQUE: Transabdominal and transvaginal grayscale ultrasound of the pelvis with color Doppler andspectral Doppler ultrasound of the ovaries. INDICATION: Vaginal bleeding. COMPARISON: None. FINDINGS: UTERUS: The uterus is 13.1 x 6.6 x 3.0 cm. The endometrial echo complexthickness is 0.7 cm, withinnormal limits. There are several small masses compatible with fibroids with largest within the uterine fundus with measurements of 6.9 x 7.0 x 6.1 cm OVARIES/ADNEXA: Right ovary has measurements of 6.4 x 7.7 x 6.6 cm and the left ovary has measurements of 2.4 x 1.5 x 1.7 cm. There is an anechoic right ovarian cyst with septation that is 5.4 x 7.3 x 6.0 cm. Arterial and venous flow detected in both ovaries. PELVIS: No free fluid. IMPRESSION: 1. Fibroid uterus. 2. Large 7.3cm right ovarian cyst with septation is nonspecific but almost certainly benign. Givenlarge size, rec ommend follow-up in approximately two months for resolution/recharacterization. Signed by: Ingrid Posada on 08/31/2021 9:54 PM Dictated By: INGRID POSADA MD 55 Transcribed By: PSCRIBE on 08/31/212153 COPY TO: SUSIE VARGAS [id number] 21:54:[address] : 1975 Sex: F [place] [address] Patient Name: ALFONSO SINGH MR #: [id number] : 1975 Age/Sex: 46/F Req #: [id number] [facility] Physician: INGRID HOLGUIN MD Ordered by: INGRID HOLGUIN MD Report #: [id number] Location: [facility] Room/Bed: [place] [address] Procedure: [id number] US/US TRANSVAGINAL Exam Date: 08/31/21 Exam Time: 1839 REPORTSTATUS: Signed TECHNIQUE: Transabdominal and transvaginal grayscale ultrasound of the pelvis with color Doppler andspectral Doppler ultrasound of the ovaries. INDICATION: Vaginal bleeding. COMPARISON: None. FINDINGS: UTERUS: The uterus is 13.1 x 6.6 x 3.0 cm. The endometrial echo complex thickness is 0.7 cm, withinnormal limits. There are several small masses compatible with fibroids with largest within the uterine fundus with measurements of 6.9 x 7.0 x 6.1 cm OVARIES/ADNEXA: Right ovary has measurements of 6.4 x 7.7 x 6.6 cm and the left ovary has measurements of 2.4 x 1.5 x 1.7 cm. There is an anechoic right ovarian cyst with septation that is 5.4 x 7.3 x 6.0 cm. Arterial and venous flow detected in both ovaries. PELVIS: No free fluid. IMPRESSION: 1. Fibroid uterus. 2. Large 7.3 cm right ovarian cyst with septation is nonspecific but almost certainly benign. Givenlarge size, recommend follow-up in approximately two months for resolution/recharacterization. Signed by: Ingrid Posada on 08/31/2021 9:54 PM Dictated By: INGRID POSADA MD 55 Transcribed By: OCTAVIANO on 08/31/212153 COPY TO: INGRID HOLGUIN [facility] SINGLE (PORTABLE)2021-08-31 16:39:[address] [facility] : 1975 Sex: F [place] [address] Patient Name: ALFONSO SINGH MR #: [id number] : 1975 Age/Sex: 46/F Req #: [id number] Adm Physician: Ordered by: SUSIE VARGAS MD Report #: [id number] Location: ER Room/Bed: Procedure: [id number] DX/CHEST SINGLE (PORTABLE) Exam Date: 08/31/21 Exam Time: 1610 REPORT STATUS: Signed Chest, 1 view. History: Shortness of breath, dizziness. Comparison: None available. Discussion: The tr achea is midline. The lungs are symmetrically expanded without evidence of focal consolidation, pneumothorax, or significant pleural effusion. The cardiomediastinal silhouette and pulmonary vasculatureare within normal limits. No acute osseous abnormalities identified. The soft tissues are unremarkable. IMPRESSION: No acute cardiopulmonary process identified. Signed by: Ziggy Cho MD on 08/31/2021 4:39 PM Dictated By: ZIGGY CHO MD 1641 Transcribed By: PSCRIBE on 08/31/21 1639 COPY TO: SUSIE VARGAS MDUrine color cbznedmkrcbig3276-15-46 15:15:00 Test Item Value Reference Range Interpretation Comments Urine Color (test code = 5778-6) RED YELLOW [facility] CenterUrine wdwrqfx3267-70-01 15:15:00 Test Item Value Reference Range Interpretation Comments Urine Clarity (test code = 49353-0) CLOUDY CLEAR [facility] Rockpecific gravity of Urine by Test strip 2021-08-31 15:15:00 Test Item Value Reference Range Interpretation Comments Urine Specific [place] (test code = 1.020 1.010-1.025 5811-5) [facility] CenterUrine pH measurement by automated test strip 2021-08-31 15:15:00 Test Item Value Reference Range Interpretation Comments Urine pH (test code = 61608-2) 6.5 5-7 [facility] CenterUrine leukocyte esterase detection by automated test yyjfr2327-79-06 15:15:00 Test Item Value Reference Range Interpretation Comments Urine Leukocyte Esterase (test code NEGATIVE NEGATIVE = 70030-5) [facility] CenterUrine nitrite detection by automated test [id number] 15:15:00 Test Item Value Reference Range Interpretation Comments Urine Nitrite (test code = 68489-1) NEGATIVE NEGATIVE [facility] CenterUrine protein detection by automated test [id number] 15:15:00 Test Item Value Reference Range Interpretation Comments Urine Protein (test code = 36893-5) >=300 NEGATIVE [facility] CenterUrine glucose detection by automated test chxro5364-54-26 15:15:00 Test Item Value Reference Range Interpretation Comments Urine Glucose (UA) (test code = >=1000 NEGATIVE 93731-4) [facility] CenterUrine ketones detection by automated test zmdtx4446-82-89 15:15:00 Test Item Value Reference Range Interpretation Comments Urine Ketones (test code = 64687-8) TRACE NEGATIVE [facility] CenterUrine urobilinogen measurement by test strip (mass/volume)2021-08-31 15:15:00 Test Item Value Reference Range Interpretation Comments Urine Urobilinogen (test code = 0.2 0.2-1 40892-5) [facility] CenterUrine total bilirubin usjaiegnl9041-67-35 15:15:00 Test Item Value Reference Range Interpretation Comments Urine Bilirubin (test code = 1977-8) NEGATIVE NEGATIVE [facility] CenterUrine erythrocytes zpvdgodbv0677-20-17 15:15:00 Test Item Value Reference Range Interpretation Comments Urine Blood (test code = 56896-0) LARGE NEGATIVE [facility] CenterAutomated urine sediment leukocyte count by microscopy (number/high power field)2021-08-31 15:15:00 Test Item Value Reference Range Interpretation Comments Urine WBC (test code = 5821-4) 6-10 0-5 [facility] CenterErythrocytes detection in urine sediment by light fexsdvsynl7433-69-47 15:15:00 Test Item Value Reference Range Interpretation Comments Urine RBC (test code = 18040-1) >50 0-5 [facility] [facility]Bacteria detection in urine sediment by light [id number] 15:15:00 Test Item Value Reference Range Interpretation Comments Urine Bacteria (test code = 27033-6) MODERATE NONE [facility] CenterEpithelial cells detection in urine sediment by light [id number] 15:15:00 Test Item Value Reference Range Interpretation Comments Urine Epithelial Cells (test code = FEW NONE 39771-8) [facility] CenterAmorphous sediment detection in urine sediment by light [id number] 15:15:00 Test Item Value Reference Range Interpretation Comments Urine Amorphous Sediment (test code = FEW FEW 8246-1) [facility] CenterCoarse granular casts detection in urine sediment by light [id number] 15:15:00 Test Item Value Reference Range Interpretation Comments Urine Coarse Granular Casts (test code 1-5 0-0 = 84142-0) [facility] CenterMucus detection in urine sediment by light [id number] 15:15:00 Test Item Value Reference Range Interpretation Comments Urine Mucus (test code = 8247-9) MODERATE RARE [facility] CenterBlood platelets count by estimate (number/volume)2021-08-31 15:10:00 Test Item Value Reference Range Interpretation Comments Platelet Estimate (test code = ADEQUATE 09125-5) [facility] CenterPlatelet [id number] 15:10:00 Test Item Value Reference Range Interpretation Comments Platelet Morphology Comment (test code NORMAL = 24387-2) [facility] CenterBlood hypochromia detection by light [id number] 15:10:00 Test Item Value Reference Range Interpretation Comments Hypochromasia (test code = 728-6) SLIGHT [facility] CenterBlood anisocytosis detection by light [id number] 15:10:00 Test Item Value Reference Range Interpretation Comments Anisocytosis (test code = 702-1) MODERATE [facility] CenterBlood microcytes detection by light [id number] 15:10:00 Test Item Value Reference Range Interpretation Comments Microcytosis (test code = 741-9) MODERATE [facility] or plasma creatine kinase measurement (enzymatic activity/volume)2021-08-31 15:10:00 Test Item Value Reference Range Interpretation Comments Creatine Kinase (test code = 2157-6) 23 29-168 [facility] Rockerum or plasma creatine kinase MB measurement (mass/volume)2021-08-31 15:10:00 Test Item Value Reference Range Interpretation Comments Creatine Kinase MB (test code = 0.30 0-5.0 47097-1) [facility] CenterTroponin I measurement by highly sensitive enzyme [id number] 15:10:00 Test Item Value Reference Range Interpretation Comments Troponin I (test code = 29406-9) 0.003 0-0.300 [facility] Rockerum or plasma choriogonadotropin ( test) [id number] 15:10:00 Test Item Value Reference Range Interpretation Comments Human Chorionic Gonadotropin, Qual NEGATIVE NEGATIVE (test code = 2118-8) [facility] RockARS-CoV-2 (COVID-19) RNA [Presence] in Respiratory specimen by MONIQUE with probe [id number] 15:10:00 Test Item Value Reference Range Interpretation Comments Coronavirus (PCR) (test code = NOT DETECTED NOTDETECTED 54990-9) [facility]
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
--- NOTE | 2022-12-30 17:38 | RAD REPORT ---
EXAM DESCRIPTION: RAD - Humerus Left - 12/30/2022 4:45 pm CLINICAL HISTORY: Pain COMPARISON: None. FINDINGS: No fracture is identified. There is no dislocation or periosteal reaction noted. Mild-to- moderate osteoarthritic changes of the acromioclavicular joint. Mineralized foci adjacent to the grea ter tuberosity posteriorly, as well as a linear focus of calcification adjacent to the tip of the cor acoid process. IMPRESSION: No acute osseous abnormality of the left humerus. Findings suggestive of calcific tendin itis as above.
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
[2022-12-30] MEDS ORDERED: IBUPROFEN 400 MG TAB ONE (18:10)
[2022-12-30 18:41] VITALS: BP 138/68; TEMP 98.3; O2SAT 98
== END 2022-12-30 18:20 | disposition home or self-care (01) ==
LOC: ER 15:11
DX: M79.622 Pain in left upper arm (principal); M54.2 Cervicalgia; G44.319 Acute post-traumatic headache, not intractable; K08.89 Other specified disorders of teeth and supporting structures; V49.9XXA Car occupant (driver) (passenger) injured in unspecified traffic accident, initial encounter
CPT/HCPCS: 70450; 70486; 71045; 72125; 76377; 99283